=== PATIENT | female | born 1965 | race Caucasian/White ===

== ENCOUNTER 2016-10-16 04:48 | Emergency (ER) | payer OTHER ==
[~2016-10-16] VITALS: Ht 152.4 cm; Wt 71.5 kg
[~2016-10-16 04:48] MED LIST: NITR-58 PO; PHEN-538 PO
[2016-10-16 04:53] VITALS: Ht 152.4 cm; Wt 71.5 kg
[2016-10-16] MEDS ORDERED: PHEN-538 PO (05:06)
[2016-10-16] MEDS ORDERED: NITR-58 PO (05:06)
--- NOTE | 2016-10-16 05:10 | ERD ---
ER Documentation Chief Complaint Date/Time DATE: 10/16/16 TIME: 05:08 Chief Complaint painful/burning urination, blood in urine x 2 hours HPI Patient presents with dysuria, hematuria, increased urinary frequency that began approximately 2-3 hours ago. She states "I have a UTI." She states this is her usual presentation for her UTI symptoms and usually her symptoms are resolved with Macrobid. She denies any fever, nausea, vomiting, diarrhea. She is tolerating oral intake. Pain is moderate and burning in nature. ROS All systems reviewed and are negative except as per history of present illness. Medications Home Meds Active Scripts Phenazopyridine Hcl* (Pyridium*) 200 Mg Tab, 200 MG PO TID Y for URINARY PAIN, # 6 TAB Prov:REBECCA NAJERA PA-C 10/16/16 Nitrofurantoin Monohyd Macrocr* (Macrobid*) 100 Mg Capsr, 100 MG PO BID for 7 Days, CAP Prov:REBECCA NAJERA PA-C 10/16/16 Phenazopyridine Hcl* (Pyridium*) 200 Mg Tab, 200 MG PO TID Y for URINARY PAIN, # 6 TAB Prov:REBECCA NAJERA PA-C 07/25/16 Nitrofurantoin Monohyd Macrocr* (Macrobid*) 100 Mg Capsr, 100 MG PO BID for 7 Days, CAP Prov:REBECCA NAJERA PA-C 07/25/16 Allergies Allergies: Coded Allergies: azithromycin (Verified Allergy, Unknown, 10/16/16) PMhx/Soc History of Surgery: No Anesthesia Reaction: No Hx Neurological Disorder: No Hx Respiratory Disorders: Yes (ASTHMA ) Hx Cardiac Disorders: No Hx Psychiatric Problems: No Hx Miscellaneous Medical Probl: No Hx Alcohol Use: No Hx Substance Use: No Hx Tobacco Use: No Smoking Status: Never smoker FmHx Family History: No diabetes Physical Exam Vitals Vital Signs Date Time Temp Pulse Resp B/P Pulse Ox O2 Delivery O2 Flow Rate FiO2 10/16/16 04:53 97.5 94 20 140/72 98 Physical Exam General: well developed, well nourished, alert, nontoxic, no distress Head: normocephalic, atraumatic Neck: Supple, nontender, no lymphadenopathy, no midline tenderness Respiratory: Clear to auscaultation bilaterally, speaks in full sentences, no use of accesory muscles or labored breathing, no rales, ronchi, or wheezing Cardiovascular: RRR, No murmurs GI: soft, non tender, non distended, negative murphys sign, negative mcburneys point tenderness, no cva tenderness bilaterally, no rebound or guarding Back: no midline tenderness, no step offs or bony abnormalities, sensation to light touch in tact Results 24 hrs Current Medications Medications (Trade) Dose Ordered Sig/Ana Route PRN Reason Start Time Stop Time Status Last Admin Dose Admin Nitrofurantoin Macrocrystals (Macrobid) 100 mg ONCE ONCE PO 10/16/16 05:30 10/16/16 05:31 10/16/16 05:10 Procedures/MDM Patient presents with dysuria hematuria and increased urinary frequency. Her vital signs are within normal limits. I doubt pyelonephritis. I doubt kidney stones, appendicitis, or any other acute emergent intra-abdominal or intrapelvic emergency. She states this is a normal presentation for her UTI. Urine dip was positive for infection with leukocytes and nitrites as well as blood. Urine was sent for culture. She was given the first dose of Macrobid here in the emergency room and she was discharged with Macrobid and Pyridium. Recommended this patient follow up with her primary care doctor within 48 hours or return to the emergency room for any worsening of symptoms. However this time I do believe there is suitable for outpatient management. I answered all their questions and they agreed with the plan and were discharged home. Departure Diagnosis: Primary Impression: Cystitis Condition: Stable Patient Instructions: Cystitis Additional Instructions: Call your primary care doctor TOMORROW for an appointment during the next 1-2 days.See the doctor sooner or return here if your condition worsens before your appointment time. REBECCA NAJERA PA-C Oct 16, 2016 05:10 REBECCA NAJERA PA-C Oct 16, 2016 05:10
[2016-10-16 05:14] LABS: URINE BLOOD (Dip) POC 3+ (NEGATIVE)
[2016-10-16] MEDS ORDERED: NITROFURANTOIN (SR) 100 MG CAP PO ONE (05:30)
== END 2016-10-16 05:22 | disposition home or self-care (01) ==
LOC: FTE 04:48
DX: N30.91 Cystitis, unspecified with hematuria (principal); J45.909 Unspecified asthma, uncomplicated
CPT/HCPCS: 81003; 87086; Z7502; Z7610; 99283